=== PATIENT | female | born 1965 | race Caucasian/White ===

== ENCOUNTER 2023-09-11 08:01 | Emergency (ER) | payer BC, SELFPAY ==
[2023-09-11 08:13] VITALS: BP 170/91; PULSE 87; TEMP 36.6; O2SAT 98; BMI 40.7
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
[2023-09-11] MEDS: ADACEL DIPH,PERTUSS(ACELL),TET VAC/PF 0.5 ML ADULT SYRINGE IM (09:01)
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
== END 2023-09-11 09:16 | disposition home or self-care (01) ==
PROVIDERS: Emergency Provider Emergency Medicine; PCP Nurse Practitioner
DX: S51.012A Laceration without foreign body of left elbow, initial encounter (principal); Z23 Encounter for immunization; W22.8XXA Striking against or struck by other objects, initial encounter; Z79.899 Other long term (current) drug therapy
CPT/HCPCS: 73080; 90471; 90715; 99283

== ENCOUNTER 2023-10-19 22:12 | Emergency (ER) | payer BC, SELFPAY ==
[2023-10-19 22:29] VITALS: BP 150/90; PULSE 75; TEMP 36.7; O2SAT 92; BMI 27.3
--- NOTE | 2023-10-19 22:53 | ED_ITS ---
HPI - Nausea/Vomiting/Diarrhea General Chief complaint: Nausea/Vomiting/Diarrhea Stated complaint: VOMITING BP HIGH Time Seen by Provider: 10/19/23 22:46 Source: patient Mode of arrival: walk-in Limitations: no limitations History of Present Illness HPI Narrative: patient states her BP was elevated and her physician started her on a new BP medication. States tonight she did not feel right and took her BP and it was elevated at 160 systolic. She retook it and it was higher at 180s. She also became nauseated and vomited. States she no longer feels nauseated but has a headache. No chest pain or abdominal pain. States she does get headaches when her BP is not right Related Data Home Medications ?Medication ?Instructions ?Recorded ?Confirmed sertraline 100 mg tablet (Zoloft) 100 mg PO DAILY 09/11/23 10/19/23 amlodipine 5 mg tablet 5 mg PO DAILY 10/19/23 10/19/23 buspirone 7.5 mg tablet 7.5 mg PO DAILY 10/19/23 10/19/23 montelukast 10 mg tablet mg 10/19/23 Previous Rx's ?Medication ?Instructions ?Recorded cephalexin 500 mg capsule 500 mg PO TID 7 days #21 caps 09/11/23 Allergies Allergy/AdvReac Type Severity Reaction Status Date / Time No Known Drug Allergies Allergy Verified 10/19/23 22:36 Review of Systems ROS Status of ROS 10 or more systems reviewed and unremark able except as noted in history and below Exam Constitutional Vital Signs, click to edit/add: Last Vital Signs Temp 98.1 F 10/19/23 22:29 Pulse 75 10/19/23 22:29 Resp 18 10/19/23 22:29 BP 150/90 H 10/19/23 22:29 Pulse Ox 92 L 10/19/23 22:29 O2 Del Method Room Air 10/19/23 22:29 Common normals: no apparent distress, oriented x3, no limitations, healthy appearing, alert and well nourished [facility] Common normals: normocephalic and head/scalp atraumatic Eye Common normals: EOMs intact bilaterally and conjunctivae normal Respiratory Common normals: normal respiratory effort, no retractions, no use of accessory muscles and clear to auscultation bilaterally Cardio Common normals: regular rate, regular rhythm, S1 normal heart sound and S2 normal heart sound GI Common normals: Normal to inspection, nondistended, normoactive bowel sounds present, soft to palpation and non-tender Extremity Common normals: normal to inspection and full ROM Neuro Common normals: oriented x3, CN's II-XII intact bilaterally, moves all extremities and no focal motor deficits Psych Appearance: grossly normal Course Vital Signs Vital signs: Vital Signs Temperature 98.1 F 10/19/23 22:29 Pulse Rate 75 10/19/23 22:29 Respiratory Rate 18 10/19/23 22:29 Blood Pressure 150/90 H 10/19/23 22:29 Pulse Oximetry 92 L 10/19/23 22:29 Oxygen Delivery Method Room Air 10/19/23 22:29 Temperature 98.1 F 10/19/23 22:29 Pulse Rate 75 10/19/23 22:29 Respiratory Rate 18 10/19/23 22:29 Blood Pressure 150/90 H 10/19/23 22:29 Pulse Oximetry 92 L 10/19/23 22:29 Oxygen Delivery Method Room Air 10/19/23 22:29 MDM - Nausea/Vomiting/Diarrhea MDM Narrative Medical decision making narrative: patient presented with a headache and concern about her BP that was elevated at home. BP here 150s. Labs unremarkable. treated for headache with Reglan and benadryl and now is asymptomatic. Discharged home and advised to contact her doctor tomorrow to let her know how she is doing and schedule a followup Lab Data Labs: Lab Results 10/19/23 Range/Units 23:07 WBC 6.6 (4.0-11.0) 10^3/uL RBC 4.31 (4.20-5.40) 10^6/uL Hgb 12.6 (12.0-16.0) g/dL Hct 38.6 (36.0-48.0) % MCV 89.6 (81.0-99.0) fL MCH 29.2 (26.7-34.0) pg MCHC 32.6 (29.9-35.2) g/dL RDW 13.1 (11.0-15.0) % Plt Count 218 (150-450) 10^3/uL MPV 10.8 (9.5-13.5) fL Neut % (Auto) 59.1 (43.0-75.0) % Lymph % (Auto) 28.2 (20.5-60.0) % Calvert % (Auto) 6.7 (1.7-12.0) % Eos % (Auto) 4.4 (0.9-7.0) % Baso % (Auto) 1.4 (0.2-2.0) % Neut # (Auto) 3.9 (1.4-6.5) 10^3/uL Lymph # (Auto) 1.9 (1.2-3.8) 10^3/uL Calvert # (Auto) 0.4 (0.3-0.8) 10^3/uL Eos # (Auto) 0.3 (0.0-0.7) 10^3/uL Baso # (Auto) 0.1 (0.0-0.1) 10^3/uL Abs Immat Gran (auto) 0.01 (0.00-0.03) 10^3/uL Imm/Tot Granulo (auto) 0.2 (0.0-0.5) % Sodium 140 (136-145) mmol/L Potassium 3.8 (3.5-5.1) mmol/L Chloride 105 (98-107) mmol/L Carbon Dioxide 29.3 (21.0-32.0) mmol/L Anion Gap 9.5 BUN 18.0 (7.0-18.0) mg/dL Creatinine 1.01 (0.55-1.02) mg/dL Est GFR ( Amer) >60 (>=60) Est GFR (Non-Af Amer) 57 L (>=60) BUN/Creatinine Ratio 17.8 Glucose 121 H (74-106) mg/dL Calcium 9.4 (8.5-10.1) mg/dL Troponin I High Sens 4.7 (4.0-51.3) pg/mL Discharge Plan Discharge Stand Alone Forms: Portal Instructions Chief Complaint: Nausea/Vomiting/Diarrhea Clinical Impression: Headache, Hypertension Patient Disposition: Home, Self-Care Prescriptions / Home Meds: No Action amlodipine 5 mg tablet 5 mg PO DAILY buspirone 7.5 mg tablet 7.5 mg PO DAILY montelukast 10 mg tablet sertraline [Zoloft] 100 mg tablet 100 mg PO DAILY cephalexin 500 mg capsule 500 mg PO TID 7 Days Qty: 21 0RF Print Language: Yoruba Instructions: Acute Headache (ED), Hypertension (ED) Additional Instructions: follow up with your doctor tomorrow Referrals: JOYCE WILKINS [Primary Care Provider] - 1 week
--- NOTE | 2023-10-19 22:56 | ECG_ITS ---
The [facility] Test Date: 2023-10-19 Pat Name: MELYSSA SULTANA Department: Room: - Gender: Female Oil Operator: : 1965 Requested By: JOHAN JANG Order Number: [id number] Reading MD: JOHAN JANG Measurements Intervals [place] Rate: 68 P: 30 MO: 162 QRS: 79 QRSD: 74 T: 61 QT: 414 QTc: 431 Interpretive Statements 1100 Sinus rhythm 9110 normal ECG No previous ECG available for comparison Electronically Signed On 10-20-2023 5:30:25 EDT by JOHAN JANG
[2023-10-19 23:14] LABS: Basophils Absolute Auto 0.1 10^3/uL (0.0-0.1); Basophils Percent Auto 1.4 % (0.2-2.0); Eosinophils Absolute Auto 0.3 10^3/uL (0.0-0.7); Eosinophils Percent Auto 4.4 % (0.9-7.0); Hematocrit 38.6 % (36.0-48.0); Hemoglobin 12.6 g/dL (12.0-16.0); Immature Granulocytes Abs Auto 0.01 10^3/uL (0.00-0.03); Immature Granulocytes Pct Auto 0.2 % (0.0-0.5); Lymphocytes Absolute Auto 1.9 10^3/uL (1.2-3.8); Lymphocytes Percent Auto 28.2 % (20.5-60.0); Mean Corpuscular HGB Conc 32.6 g/dL (29.9-35.2); Mean Corpuscular Hemoglobin 29.2 pg (26.7-34.0); Mean Corpuscular Volume 89.6 fL (81.0-99.0); Mean Platelet Volume 10.8 fL (9.5-13.5); Monocytes Absolute Auto 0.4 10^3/uL (0.3-0.8); Monocytes Percent Auto 6.7 % (1.7-12.0); Neutrophils Absolute Auto 3.9 10^3/uL (1.4-6.5); Neutrophils Percent Auto 59.1 % (43.0-75.0); Platelet Count 218 10^3/uL (150-450); Red Blood Count 4.31 10^6/uL (4.20-5.40); Red Cell Distribution Width 13.1 % (11.0-15.0); White Blood Count 6.6 10^3/uL (4.0-11.0)
[2023-10-19 23:32] LABS: Anion Gap 9.5; BUN Creatinine Ratio 17.8; Calcium 9.4 mg/dL (8.5-10.1); Carbon Dioxide 29.3 mmol/L (21.0-32.0); Chloride 105 mmol/L (98-107); Estimated GFR (African America >60 (>=60); Estimated GFR (Non-African Ame 57 (>=60); Glucose 121 mg/dL (74-106); Potassium 3.8 mmol/L (3.5-5.1); Sodium 140 mmol/L (136-145); Troponin I High Sensitivity 4.7 pg/mL (4.0-51.3)
[2023-10-19] MEDS: METOCLOPRAMIDE HCL 10 MG/2 ML VIAL IVP (23:44)
[2023-10-19] MEDS: DIPHENHYDRAMINE HCL 50 MG/ML (1ML) VIAL IV (23:44)
[2023-10-20 00:49] VITALS: BP 154/90; PULSE 75; O2SAT 93
== END 2023-10-20 00:53 | disposition home or self-care (01) ==
PROVIDERS: Emergency Provider Internal Medicine; PCP Nurse Practitioner
DX: R51.9 Headache, unspecified (principal); I10 Essential (primary) hypertension; Z79.899 Other long term (current) drug therapy
CPT/HCPCS: 36415; 80048; 84484; 85025; 93005; 96374; 96375; 99284

== ENCOUNTER 2023-12-08 20:47 | Outpatient (OUT) | payer BC, SELFPAY | END 2023-12-08 20:48 | disposition home or self-care (01) | LOC: SLEEP 20:47 | PROVIDERS: PCP Nurse Practitioner; Visit Provider Nurse Practitioner | DX: G47.33 Obstructive sleep apnea (adult) (pediatric) (principal) | CPT/HCPCS: 95810 ==

== ENCOUNTER 2024-01-20 20:37 | Outpatient (OUT) | payer BC, SELFPAY ==
--- OUTSIDE RECORDS SUMMARY | 2024-01-20 20:39 | XMS_ITS | CCD ---
Author Organization [facility] Inform ion Partnership [facility] Care Team Providers Care Cheese Cutter Name Role Phone Cyn Falk Primary Care Provider Tereza Lombardo Unavailable Lexus Rhodes Primary Care Physician [phone] Lexus Rhodes Attending Unavailable Carmelo, Lexus Suarez Admitting Unavailable Carmelo, Lexus Suarez Attending Unavailable Carmelo, Lexus Suarez Attending Unavailable Carmelo, Lexus Suarez Attending Unavailable Carmelo, Lexus Suarez Attending Unavailable Carmelo, Lexus Suarez Attending Unavailable Carmelo, Lexus Suarez Admitting Unavailable Carmelo, Lexus Suarez Attending Unavailable Allergies Allergy Classification Reported Allergen(s) Allergy Type Date of Onset Reaction(s) Facility (2 sources) No Known Medication Allergies; Translations: [No Known Medication Allergies] Propensity to adverse reactions (disorder) [facility] Repository Medications Current Medications Medication Drug Class(es) Dates Sig (Normalized) Sig (Original) amLODIPine 5 mg oral tablet (1 source) Dihydropyridine Calcium Channel Jessy Start: 10-19-19 take 1 tablet by mouth once daily Norvasc 5 mg Tab 5 mg = 1 tab(s), Oral, Daily, # 30 tab(s), Refills(s) 0, Pharmacy: [facility]/pharmacy #[id number], 170.1, cm, 10/19/23 9:20:00 EDT, Height/Length Dosing, 127, kg, 10/19/23 9:20:00 EDT, Weight Dosing Start Date: 10/19/23 Status: Ordered busPIRone hydrochloride 7.5 mg oral tablet (1 source) Start: 10-19-19 take 1 tablet by mouth three times daily busPIRone 7.5 mg oral tablet 7.5 mg = 1 tab(s), Oral, TID, # 90 tab(s), Refills(s) 0, Pharmacy: [facility]/pharmacy #[id number], 170.1, cm, 10/19/23 9:20:00 EDT, Height/Length Dosing, 127, kg, 10/19/23 9:20:00 EDT, Weight Dosing Start Date: 10/19/23 Status: Ordered cetirizine hydrochloride 10 mg oral capsule (1 source) Histamine-1 Receptor Antagonist Start: 10-19-19 take 1 capsule by mouth once daily as needed cetirizine 10 mg oral capsule 10 mg = 1 cap(s), Oral, Daily, PRN for allergy symptoms, # 90 cap(s), Refills(s) 0, Pharmacy: [facility]/pharmacy #[id number], 170.1, cm, 10/19/23 9:20:00 EDT, Height/Length Dosing, 127, kg, 10/19/23 9:20:00 EDT, Weight Dosing Start Date: 10/19/23 Status: Ordered fluticasone propionate 0.05 mg/actuat metered dose nasal spray (1 source) Corticosteroid Start: 08-12-19 take 1 spray(s) nasal route once daily Fluticasone Propionate 50 MCG/ACT 1 spray in each nostril Nasally Once a day for 21 days Jul, Active methylPREDNISolone 4 mg oral tablet (1 source) Corticosteroid Start: 08-12-19 methylPREDNISolone 4 MG as directed Orally Once a day for 6 days Jul, Active montelukast 10 mg oral tablet (1 source) Leukotriene Receptor Antagonist Start: 10-19-19 take 1 tablet by mouth once daily in the evening Singulair 10 mg Tab 10 mg = 1 tab(s), Oral, qPM, # 90 tab(s), Refills(s) 0, Pharmacy: [facility]/pharmacy #[id number], 170.1, cm, 10/19/23 9:20:00 EDT, Height/Length Dosing, 127, kg, 10/19/23 9:20:00 EDT, Weight Dosing Start Date: 10/19/23 Status: Ordered omeprazole 20 mg delayed release oral capsule (1 source) Proton Pump Inhibitor Start: 10-19-19 End: 10-14-19 take 1 capsule by mouth once daily omeprazole 20 mg Cap-DR 20 mg = 1 cap(s), Oral, Daily, X 90 day(s), # 90 cap(s), Refills(s) 3, Pharmacy: [facility]/pharmacy #[id number], 170.1, cm, 10/19/23 9:20:00 EDT, Height/Length Dosing, 127, kg, 10/19/23 9:20:00 EDT, Weight Dosing Start Date: 10/19/23 Stop Date: 10/13/24 Status: Ordered sertraline 100 mg oral tablet (1 source) Serotonin Reuptake Inhibitor Start: 10-19-19 End: 10-14-19 take 1 tablet by mouth once daily sertraline 100 mg Tab 100 mg = 1 tab(s), Oral, Daily, X 90 day(s), # 90 tab(s), Refills(s) 3, Pharmacy: [facility]/pharmacy #[id number], 170.1, cm, 10/19/23 9:20:00 EDT, Height/Length Dosing, 127, kg, 10/19/23 9:20:00 EDT, Weight Dosing Start Date: 10/19/23 Stop Date: 10/13/24 Status: Ordered Xtra large cuff-automatic BP monitor (1 source) Start: 10-19-19 Xtra large cuff-automatic BP monitor Xtra large cuff-automatic BP monitor, See Instructions, 1 EA, 0, check BP once a day, [facility]/pharmacy #[id number], Supply, 170.1, cm, 10/19/23 9:20:00 EDT, Height/Length Dosing, 127, kg, 10/19/23 9:20:00 EDT, Weight Dosing Start Date: 10/19/23 Status: Ordered Problems Problem Classification Problem Date Documented Da te Episodic/Chronic Chronic obstructive pulmonary disease and bronchiectasis (1 source) Bronchitis, not specified as acute or chronic Episodic Coma; stupor; and brain damage (1 source) Daytime somnolence 10-19-2023 Episodic Essential hypertension (1 source) Hypertensive disorder 10-19-2023 Chronic Immunizations and screening for infectious disease (1 source) Exposure to communicable disease; Translations: [Virus (organism)] Onset: 04-12-2020 Episodic Malaise and fatigue (1 source) Fatigue 10-19-2023 Episodic Other connective tissue disease (1 source) Cramp in lower limb 10-19-2023 Episodic Other lower respiratory disease (1 source) Snoring 10-19-2023 Episodic Other upper respiratory infections (1 source) Sinusitis 05-07-2023 Chronic Other upper respiratory infections (1 source) Acute upper respiratory infection, unspecified Episodic Otitis media and related conditions (2 sources) Finding of fluid behind tympanic membrane; Translations: [Otitis media] 05-07-2023 Episodic Unclassified (3 sources) Patient encounter status 10-19-2023 Results Test Name Value Interpretation Reference Range Facility Family Medicine Office/Clini c Noteon 11-11-2023 Family Medicine Office/Clinic Note HPI Staff Leia is a 58 year old female presenting for 3 weeks follow up ANDRÉS: 10/19/23 started norvasc 5mg Patient is here for follow up on hypertension. How often are you checking your blood pressure? 111/66 What are your average readings? every 3 days no side effects from starting norvasc Pt states sometimes when she swallows and sometimes feels like things get stuck, when eating always has to carry a drink with her and worse with dry foods. Has been intermittent for 2 years pt thought it was just due to her GERD but her brother and dad both had to have there there esophagus stretched. Pt had a swallow study done but has been over 15 years ago History of Present Illness pt presents today. Review of Systems PHQ Score Initial Depression Screen Score: 0 SCORE Physical Exam Vitals & Measurements HR: 80(Peripheral) RR: 18 BP: 120/84 SpO2: 96% HT: 67 in HT: 170.1 cm WT: 128.60 kg WT: 282.92 lb BMI: 44.45 General: alert, no acute distress ENMT: oral mucosa moist, no pharyngeal erythema or exudate Cardiovascular: regular rate and rhythm, normal peripheral perfusion Respiratory: Lungs CTA, respirations non labored Extremities: no deformity, no trauma Neurological: oriented x 4, LOC appropriate for age, CN II-XII intact, motor strength equal & normal bilaterally, speech normal Assessment/Plan 1. Hypertension (I10: Essential (primary) hypertension) BP at goal today. pt is feel much better. will send refills. RTC 3 months Ordered: E&M of Est. Patient Low 20-29 Min 40564 2. Difficulty swallowing solids (R13.10: Dysphagia, unspecified) pt having trouble swallowing food at time. always has to have a drink when eating because things get stuck. family history of needed esophagus stretched dad and brother. will order swallow evaluation to [facility]. may refer to ENT pending results of swallow study Ordered: E&M of Est. Patient Low 20-29 Min 12472 3. BMI 40.0-44.9, adult (Z68.41: Body mass index [BMI] 40.0-44.9, adult) BMI education complete Ordered: E&M of Est. Patient Low 20-29 Min 30659 Follow-up No qualifying data available Problem List/Past Medical History Ongoing Bilateral otitis media Daytime somnolence Difficulty swallowing solids Fatigue Fluid level behind tympanic membrane of both ears Hypertension Leg cramps Loud snoring Screening for hyperlipidemia Screening for thyroid disorder Sinusitis Wellness examination Historical No qualifying data Procedure/Surgical History Ablation. Medications busPIRone 7.5 mg oral tablet, 7.5 mg= 1 tab(s), Oral, TID cetirizine 10 mg oral capsule, 10 mg= 1 cap(s), Oral, Daily, PRN Norvasc 5 mg Tab, 5 mg= 1 tab(s), Oral, Daily, 3 refills omeprazole 20 mg Cap-DR, 20 mg= 1 cap(s), Oral, Daily, 3 refills sertraline 100 mg Tab, 100 mg= 1 tab(s), Oral, Daily, 3 refills Singulair 10 mg Tab, 10 mg= 1 tab(s), Oral, qPM Xtra large cuff-automatic BP monitor, See Instructions Allergies No Known Medication Allergies Social History Tobacco Never (less than 100 in lifetime) Tobacco Use:. Never, Current vaping or e-cigarette use Smokeless Tobacco Use:. Vaping, Ready to change: No. Household tobacco concerns: No., 11/10/2023 Family History Heart disease: Mother and Father. Hypertension: Mother and Father. Metastatic cancer: Father and Grandparent. Primary malignant neoplasm of lung: Father and Grandparent. Immunizations Vaccine Date Status Comments SARS-CoV-2 mRNA (toradhikanameran 5y-11y) vac - Not Given Postpone due to refusal [facility] Comment on above: Result Comment: Elec tronically Signed By: Lexus Estes\.br\Date and Time Signed: 11/11/23 15:05 EDT Ambulatory Visit Summaryon 0 11-10-2023 Ambulatory Visit Summary LEIA SULTANA :1965 Visit Date:11/10/2023 Ambulatory Visit Instructions Your Diagnosis Hypertension Difficulty swallowing solids BMI 40.0-44.9, adult Anxiety Current every day vaping Depression Fatigue Leg cramps Screening for hyperlipidemia Screening for thyroid disorder Wellness examination Your Care Team Attending Physician - Lexus Estes Primary Care Physician - Lexus Estes This Is Your Medications List Misc Prescription (Xtra large cuff-automatic BP monitor) amlodipine (Norvasc 5 mg Tab) busPIRone (busPIRone 7.5 mg oral tablet) cetirizine (cetirizine 10 mg oral capsule) montelukast (Singulair 10 mg Tab) omeprazole (omeprazole 20 mg Cap-DR) sertraline (sertraline 100 mg Tab) Procedures Performed Ablation. Discharge Vitals Heart Rate (Peripheral) 80 Respiratory Rate 18 Blood Pressure 120/84 Height 170.1 cm Height 67 in Weight 128.60 kg Weight 282.92 lb BMI 44.45 What to do next Scheduled Follow-Up Appointments Thursday 1:40 PM EDT With: Lexus Estes Where: [facility] Family Medicine [facility] Physician Orderon 11-10-2023 Physician Order [id number] 8#1.00TIFF [facility] Auth for Release of Medical Recordson 10-21-2023 Auth for Release of Medical Records [id number] 1#1.00TIFF [facility] ED Note-Physicianon 10-20-19 ED Note-Physician [id number] DE#1.00TIFF [facility] Ambulatory Visit Summaryon 0 10-19-2023 Ambulatory Visit Summary LEIA SULTANA :1965 Visit Date:10/19/2023 Ambulatory Visit Instructions Your Diagnosis Wellness examination Screening for hyperlipidemia Screening for thyroid disorder Fatigue Leg cramps Hypertension Anxiety Depression BMI 40.0-44.9, adult Current every day vaping Your Care Team Attending Physician - Lexus Estes Primary Care Physician - Lexus Estes This Is Your Medications List amlodipine (Norvasc 5 mg Tab) cetirizine (cetirizine 10 mg oral capsule) montelukast (Singulair 10 mg Tab) omeprazole (omeprazole 20 mg Cap-DR) sertraline (sertraline 100 mg Tab) Procedures Performed Ablation. Discharge Vitals Heart Rate (Peripheral) 78 Respiratory Rate 18 Blood Pressure 158/104 Height 170.1 cm Height 67 in Weight 127.0 kg Weight 279.4 lb BMI 43.89 What to do next Scheduled Follow-Up Appointments Thursday 10:00 AM EDT With: Lexus Estes Where: [facility] Family Medicine Shanelle Normal [facility] CBC w/ Auto Diffon 4 Basophils/100 WBC (Bld) 1.2 % Normal 0.0-2.0 [facility] Comment on above: Performed By: #### 2 [id number] #### [facility] [address] [place] [address] Basophils/Leukocytes Auto (Bld) [Pure # fraction] 0.1 E9/L Normal 0.0-0.2 [facility] Comment on above: Performed By: #### 2 [id number] #### [facility] [address] [place] [address] Eosinophils (Bld) [#/Vol] 0.3 E9/L Normal 0.0-0.5 [facility] Comment on above: Performed By: #### 2 [id number] #### [facility] [address] [place] [address] Eosinophils/100 WBC (Bld) 5.1 % Normal 0.0-8.0 [facility] Comment on above: Performed By: #### 2 [id number] #### [facility] [address] [place] [address] Erythrocyte distribution width (RBC) [Ratio] 13.4 % Normal 10.9-14.2 [facility] Comment on above: Performed By: #### 2 [id number] #### [facility] [address] [place] [address] Hematocrit (Bld) [Volume fraction] 40.1 % Normal 34.0-46.0 [facility] Comment on above: Performed By: #### 2 [id number] #### [facility] [address] [place] [address] Hemoglobin (Bld) [Mass/Vol] 13.3 g/dL Normal 12.0-16.0 [facility] Comment on above: Performed By: #### 2 [id number] #### [facility] [address] [place] [address] Lymphocytes (Bld) [#/Vol] 1.6 E9/L Normal 1.0-4.0 [facility] Comment on above: Performed By: #### 2 [id number] #### [facility] [address] [place] [address] Lymphocytes/100 WBC (Bld) 27.8 % Normal 14.0-50.0 [facility] Comment on above: Performed By: #### 2 [id number] #### [facility] [address] [place] [address] MCH (RBC) [Entitic mass] 29.2 pg Normal 27.0-34.0 [facility] Comment on above: Performed By: #### 2 [id number] #### [facility] [address] [place] [address] MCHC (RBC) [Mass/Vol] 33.2 g/dL Normal 31.4-36.0 [facility] Comment on above: Performed By: #### 2 [id number] #### [facility] [address] [place] [address] MCV (RBC) [Entitic vol] 88.1 fL Normal 80.0-100.0 [facility] Comment on above: Performed By: #### 2 [id number] #### [facility] [address] [place] [address] Monocytes (Bld) [#/Vol] 0.5 E9/L Normal 0.2-1.0 [facility] Comment on above: Performed By: #### 2 [id number] #### [facility] [address] [place] [address] Neutrophils (Bld) [#/Vol] 3.3 E9/L Normal 2.0-7.5 [facility] Comment on above: Performed By: #### 2 [id number] #### [facility] [address] [place] [address] Neutrophils/100 WBC (Bld) 57.2 % Normal 36.0-75.0 [facility] Comment on above: Performed By: #### 2 [id number] #### [facility] [address] [place] [address] Platelet 237.0 E9/L Normal 150.0-500.0 [facility] Comment on above: Performed By: #### 2 [id number] #### [facility] [address] [place] [address] Platelet mean volume (Bld) [Entitic vol] 9.5 fL Normal 6.4-10.8 [facility] Comment on above: Performed By: #### 2 [id number] #### [facility] [address] [place] [address] RBC (Bld) [#/Vol] 4.6 E12/L Normal 4.3-5.9 [facility] Comment on above: Performed By: #### 2 [id number] #### [facility] [address] [place] [address] WBC corrected for nucl RBC Auto (Bld) [#/Vol] 5.8 E9/L Normal 4.0-11.0 [facility] Comment on above: Performed By: #### 2 [id number] #### [facility] [address] [place] [address] CHEMISTRYOrdered By: SYSTEM SYSTEM on 10-19-2023 Albumin [Mass/Vol] 4.1 g/dL Normal 3.3 - 5.0 gm/dL [facility] Albumin/Globulin [Mass ratio] 1.5 {ratio} Normal 1.1 - 2.2 [facility] ALP [Catalytic activity/Vol] 65 [iU]/d Normal 21 - 98 Int._Unit/L [facility] ALT No additional P-5'-P [Catalytic activity/Vol] 16 [iU]/d Normal 6 - 46 Int._Unit/L [facility] Anion gap [Moles/Vol] 10 mmol/L Normal 6 - 16 mEq/L R emisol Chem AST [Catalytic activity/Vol] 20 [iU]/d Normal 5 - 43 Int._Unit/L [facility] Bilirubin [Mass/Vol] 0.4 mg/dL Normal 0.0 - 1 .1 mg/dL [facility] Calcium [Mass/Vol] 8.8 mg/dL Low 8.9 - 11. 1 mg/dL [facility] Chloride [Moles/Vol] 105 mmol/L Normal 101 - 1 11 mmol/L [facility] Cholesterol [Mass/Vol] 205 mg/dL High 120 - 200 mg/dL [facility] Cholesterol in HDL [Mass/Vol] 49 mg/dL Invalid Interpretation Code [facility] Comment on above: Result Comment: '>= 60 LOW RISK' '<= 40 HIGH RISK' Cholesterol in LDL [Mass/Vol] 140 mg/dL High <=129mg/dL [facility] Cholesterol in VLDL [Mass/Vol] 27 mg/dL Normal 7 - 40 mg/dL [facility] CO2 [Moles/Vol] 29 mmol/L Normal 21 - 31 mmol/L [facility] Creatinine [Mass/Vol] 0.9 mg/dL Normal 0.5 - 1.3 mg/dL [facility] eGFR 75 mL/min/1.73 m2 Normal >=59mL/min /1. 73 m2 [facility] Globulin (S) [Mass/Vol] 2.7 g/dL Normal 1.4 - 4.0 gm/dL [facility] Glucose [Mass/Vol] 94 mg/dL Normal 55 - 199 mg/dL [facility] Potassium [Moles/Vol] 4.4 mmol/L Normal 3.5 - 5.3 mmol/L [facility] Protein [Mass/Vol] 6.8 g/dL Normal 6.0 - 7.8 gm/dL [facility] Sodium [Moles/Vol] 140 mmol/L Normal 135 - 145 mmol/L [facility] Triglyceride [Mass/Vol] 136 mg/dL Normal <=149mg/dL [facility] TSH Qn 2.49 m[IU]/L Normal 0.34 - 5.60 mcIU/mL [facility] Urea nitrogen [Mass/Vol] 16 mg/dL Normal 5 - 21 mg/dL [facility] Urea nitrogen/Creatinine [Mass ratio] 18 mg/mg Normal 10 - [facility] CMPon 10-19-2023 Albumin [Mass/Vol] 4.1 g/dL Normal 3.3-5.0 [facility] Comment on above: Performed By: #### 2 [id number] #### [facility] [address] [place] [address] Albumin/Globulin (S) [Mass conc ratio] 1.5 Normal 1.1-2.2 [facility] Comment on above: Performed By: #### 2 [id number] #### [facility] [address] [place] [address] ALP [Catalytic activity/Vol] 65 Int._Unit/L Normal 21-98 [facility] Comment on above: Performed By: #### 2 [id number] #### [facility] [address] [place] [address] ALT No additional P-5'-P [Catalytic activity/Vol] 16 Int._Unit/L Normal 6-46 [facility] Comment on above: Performed By: #### 2 [id number] #### [facility] [address] [place] [address] Anion gap [Moles/Vol] 10 mmol/L Normal 6-16 [facility] Comment on above: Performed By: #### 2 [id number] #### [facility] [address] [place] [address] AST [Catalytic activity/Vol] 20 Int._Unit/L Normal 5-43 [facility] Comment on above: Performed By: #### 2 [id number] #### [facility] [address] [place] [address] Bilirubin [Mass/Vol] 0.4 mg/dL Normal 0.0-1.1 [facility] Comment on above: Performed By: #### 2 [id number] #### [facility] [address] [place] [address] Calcium [Mass/Vol] 8.8 mg/dL Low 8.9-11.1 [facility] Comment on above: Performed By: #### 2 [id number] #### [facility] [address] [place] [address] Chloride [Moles/Vol] 105 mmol/L Normal 101-111 [facility] Comment on above: Performed By: #### 2 [id number] #### [facility] [address] [place] [address] CO2 [Moles/Vol] 29 mmol/L Normal 21-31 [facility] Comment on above: Performed By: #### 2 [id number] #### [facility] [address] [place] [address] Creatinine [Mass/Vol] 0.9 mg/dL Normal 0.5-1.3 [facility] Comment on above: Performed By: #### 2 [id number] #### [facility] [address] [place] [address] Globulin (S) [Mass/Vol] 2.7 g/dL Normal 1.4-4.0 [facility] Comment on above: Performed By: #### 2 [id number] #### [facility] [address] [place] [address] Glucose [Mass/Vol] 94 mg/dL Normal 55-199 [facility] Comment on above: Performed By: #### 2 [id number] #### [facility] [address] [place] [address] Potassium [Moles/Vol] 4.4 mmol/L Normal 3.5-5.3 [facility] Comment on above: Performed By: #### 2 [id number] #### [facility] [address] [place] [address] Protein [Mass/Vol] 6.8 g/dL Normal 6.0-7.8 [facility] Comment on above: Performed By: #### 2 [id number] #### [facility] [address] [place] [address] Sodium [Moles/Vol] 140 mmol/L Normal 135-145 [facility] Comment on above: Performed By: #### 2 [id number] #### [facility] [address] [place] [address] Urea nitrogen [Mass/Vol] 16 mg/dL Normal 5-21 [facility] Comment on above: Performed By: #### 2 [id number] #### [facility] [address] [place] [address] Urea nitrogen/Creatinine [Mass ratio] 18 No Units Normal 10-20 [facility] Comment on above: Performed By: #### 2 [id number] #### [facility] [address] [place] [address] Family Medicine Office/Clini c Noteon 10-19-2023 Family Medicine Office/Clinic Note HPI Staff Leia is a 58 year old female presenting for Medication refill Follow up for Mental Status: Medication adherence- Yes, takes medication as prescribed Medication refill needed: _ Suicidal thoughts-Not at this time Most recent SANTO: 10 Most recent PHQ: 12 Labs due pt is fasting Pt states her blood pressure has been running high and home and when she goes other places. 130/90 was last week in an office. pt has been feeling fatigued not sleeping well at night getting up 2-3 times to use the restroom. Pt does snore, no apnea that she know's of, sometimes will waking up choking/coughing. Intermittent feeling she feels hot and she could pass out and headache Onset: 2-3 months getting leg cramps, has been taking magnesium seems to be helping Would like to discuss Anx/Dep as it is out of control. History of Present Illness pt presents for wellness. due for labs. has a couple complaints and elevated BP Review of Systems PHQ Score Initial Depression Screen Score: 2 SCORE Physical Exam Vitals & Measurements HR: 78(Peripheral) RR: 18 BP: 158/104 SpO2: 99% HT: 67 in HT: 170.1 cm WT: 127.0 kg WT: 279.4 lb BMI: 43.89 General: alert, no acute distress ENMT: oral mucosa moist, no pharyngeal erythema or exudate Cardiovascular: regular rate and rhythm, normal peripheral perfusion Respiratory: Lungs CTA, respirations non labored Extremities: no deformity, no trauma Neurological: oriented x 4, LOC appropriate for age, CN II-XII intact, motor strength equal & normal bilaterally, speech normal Assessment/Plan 1. Wellness examination (Z00.00: Encounter for general adult medical examination without abnormal findings) pt presents for annual wellness with lab work Ordered: amlodipine, 5 mg = 1 tab(s), Oral, Daily, # 30 tab(s), Refills(s) 0, Pharmacy: [facility] #[id number], 170.1, cm, 10/19/23 9:20:00 EDT, Height/Length Dosing, 127, kg, 10/19/23 9:20:00 EDT, Weight Dosing busPIRone, 7.5 mg = 1 tab(s), Oral, TID, # 90 tab(s), Refills(s) 0, Pharmacy: [facility] #[id number], 170.1, cm, 10/19/23 9:20:00 EDT, Height/Length Dosing, 127, kg, 10/19/23 9:20:00 EDT, Weight Dosing cetirizine, 10 mg = 1 cap(s), Oral, Daily, PRN for allergy symptoms, # 90 cap(s), Refills(s) 0, Pharmacy: [facility] #[id number], 170.1, cm, 10/19/23 9:20:00 EDT, Height/Length Dosing, 127, kg, 10/19/23 9:20:00 EDT, Weight Dosing [facility] Prescription, Xtra large cuff-automatic BP monitor, See Instructions, 1 EA, 0, check BP once a day, [facility] #[id number], Supply, 170.1, cm, 10/19/23 9:20:00 EDT, Height/Length Dosing, 127, kg, 10/19/23 9:20:00 EDT, Weight Dosing montelukast, 10 mg = 1 tab(s), Oral, qPM, # 90 tab(s), Refills(s) 0, Pharmacy: [facility]/pharmacy #[id number], 170.1, cm, 10/19/23 9:20:00 EDT, Height/Length Dosing, 127, kg, 10/19/23 9:20:00 EDT, Weight Dosing CBC w/ Auto Diff Comprehensive Metabolic Panel Lab Specimen Collect 40099 Lipid Panel Thyroid Stimulating Hormone 2. Screening for hyperlipidemia (Z13.220: Encounter for screening for lipoid disorders) lipid panel drawn Ordered: amlodipine, 5 mg = 1 tab(s), Oral, Daily, # 30 tab(s), Refills(s) 0, Pharmacy: [facility]/pharmacy #[id number], 170.1, cm, 10/19/23 9:20:00 EDT, Height/Length Dosing, 127, kg, 10/19/23 9:20:00 EDT, Weight Dosing busPIRone, 7.5 mg = 1 tab(s), Oral, TID, # 90 tab(s), Refills(s) 0, Pharmacy: [facility]/pharmacy #[id number], 170.1, cm, 10/19/23 9:20:00 EDT, Height/Length Dosing, 127, kg, 10/19/23 9:20:00 EDT, Weight Dosing cetirizine, 10 mg = 1 cap(s), Oral, Daily, PRN for allergy symptoms, # 90 cap(s), Refills(s) 0, Pharmacy: [facility]/pharmacy #[id number], 170.1, cm, 10/19/23 9:20:00 EDT, Height/Length Dosing, 127, kg, 10/19/23 9:20:00 EDT, Weight Dosing [facility] [place] Prescription, Xtra large cuff-automatic BP monitor, See Instructions, 1 EA, 0, check BP once a day, [facility]/pharmacy #[id number], Supply, 170.1, cm, 10/19/23 9:20:00 EDT, Height/Length Dosing, 127, kg, 10/19/23 9:20:00 EDT, Weight Dosing montelukast, 10 mg = 1 tab(s), Oral, qPM, # 90 tab(s), Refills(s) 0, Pharmacy: [facility]/pharmacy #[id number], 170.1, cm, 10/19/23 9:20:00 EDT, Height/Length Dosing, 127, kg, 10/19/23 9:20:00 EDT, Weight Dosing CBC w/ Auto Diff Comprehensive Metabolic Panel Lab Specimen Collect 13113 Lipid Panel Thyroid Stimulating Hormone 3. Screening for thyroid disorder (Z13.29: Encounter for screening for other suspected endocrine disorder) TSH drawn Ordered: amlodipine, 5 mg = 1 tab(s), Oral, Daily, # 30 tab(s), Refills(s) 0, Pharmacy: [facility]/pharmacy #[id number], 170.1, cm, 10/19/23 9:20:00 EDT, Height/Length Dosing, 127, kg, 10/19/23 9:20:00 EDT, Weight Dosing busPIRone, 7.5 mg = 1 tab(s), Oral, TID, # 90 tab(s), Refills(s) 0, Pharmacy: [facility]/pharmacy #[id number], 170.1, cm, 10/19/23 9:20:00 EDT, Height/Length Dosing, 127, kg, 10/19/23 9:20:00 EDT, Weight Dosing cetirizine, 10 mg = 1 cap(s), Oral, Daily, PRN for allergy symptoms, # 90 cap(s), Refills(s) 0, Pharmacy: [facility]/pharmacy #[id number], 170.1, cm, 10/19/23 9:20:00 EDT, Height/Length Dosing, 127, kg, 10/19/23 9:20:00 EDT, (more content not included)... Normal [facility] Comment on above: Result Comment: Elec tronically Signed By: Lexus Estes\.br\Date and Time Signed: 10/19/23 10:00 EDT HEMATOLOGYOrdered By: SYSTEM SYSTEM on 10-19-2023 Basophils/100 WBC (Bld) 1.2 % Normal 0.0 - 2.0 % Remisol Heme Basophils/Leukocytes Auto (Bld) [Pure # fraction] 0.1 E9/L Normal 0.0 - 0.2 E9/L Remisol Heme Eosinophils (Bld) [#/Vol] 0.3 E9/L Normal 0.0 - 0.5 E9/L Remisol Heme Eosinophils/100 WBC (Bld) 5.1 % Normal 0.0 - 8.0 % Remisol Heme Erythrocyte distribution width (RBC) [Ratio] 13.4 % Normal 10.9 - 14.2 % Remisol Heme Hematocrit (Bld) [Volume fraction] 40.1 % Normal 34.0 - 46.0 % Remisol Heme Hemoglobin (Bld) [Mass/Vol] 13.3 g/dL Normal 12.0 - 16.0 gm/dL Remisol Heme Lymphocytes (Bld) [#/Vol] 1.6 E9/L Normal 1.0 - 4.0 E9/L Remisol Heme Lymphocytes/100 WBC (Bld) 27.8 % Normal 14.0 - 50.0 % Remisol Heme MCH (RBC) [Entitic mass] 29.2 pg Normal 27.0 - 34.0 pg Remisol Heme MCHC (RBC) [Mass/Vol] 33.2 g/dL Normal 31.4 - 36.0 gm/dL Remisol Heme MCV (RBC) [Entitic vol] 88.1 fL Normal 80.0 - 100.0 fL Remisol Heme Monocytes (Bld) [#/Vol] 0.5 E9/L Normal 0.2 - 1.0 E9/L Remisol Heme Monocytes/100 WBC (Bld) 8.7 % Normal 4.0 - 14.0 % Remisol Heme Neutrophils (Bld) [#/Vol] 3.3 E9/L Normal 2.0 - 7.5 E9/L Remisol Heme Neutrophils/100 WBC (Bld) 57.2 % Normal 36.0 - 75.0 % Remisol Heme Platelet 237.0 E9/L Normal 150.0 - 500.0 E9/L Remisol Heme Platelet mean volume (Bld) [Entitic vol] 9.5 fL Normal 6.4 - 10.8 fL Remisol Heme RBC (Bld) [#/Vol] 4.6 E12/L Normal 4.3 - 5.9 E12/L Remisol Heme WBC corrected for nucl RBC Auto (Bld) [#/Vol] 5.8 E9/L Normal 4.0 - 11.0 E9/L Remisol Heme Lipid Panelon 10-19-2023 Cholesterol [Mass/Vol] 205 mg/dL High 120-200 [facility] Comment on above: Performed By: #### [id number] #### [facility] [address] [place] [address] Cholesterol in HDL [Mass/Vol] 49 mg/dL Invalid Interpretation Code [facility] Comment on above: Result Comment: '>= 60 LOW RISK' '<= 40 HIGH RISK' Performed By: #### [id number] #### [facility] [address] [place] [address] Cholesterol in LDL [Mass/Vol] 140 mg/dL High <=129 [facility] Comment on above: Performed By: #### 2 [id number] #### [facility] [address] [place] [address] Cholesterol in VLDL [Mass/Vol] 27 mg/dL Normal 7-40 [facility] Comment on above: Performed By: #### 2 [id number] #### [facility] [address] [place] [address] Triglyceride [Mass/Vol] 136 mg/dL Normal <=149 [facility] Comment on above: Performed By: #### 2 [id number] #### [facility] [address] [place] [address] TSHon 10-19-2023 TSH Qn 2.49 m[IU]/L Normal 0.34-5.60 [facility] Comment on above: Performed By: #### 2 [id number] #### [facility] [address] [place] [address] eGFRon 10-19-2023 eGFR 75 mL/min/1.73 m2 Normal >=59 [facility] Comment on above: Order Comment: Order added by Discern Expert. Performed By: #### [id number] #### [facility] [address] [place] [address] ED Note-Physicianon 09-11-19 ED Note-Physician [id number] Normal [facility] Ambulatory Visit Summaryon 1 2-07-2023 Ambulatory Visit Summary SULTANA, LEIA L :1965 Visit Date:05/07/2023 Ambulatory Visit Instructions Your Diagnosis Bilateral otitis media Fluid level behind tympanic membrane of both ears Sinusitis BMI 40.0-44.9, adult Vaping nicotine dependence, tobacco product Your Care Team Attending Physician - Lexus Estes Primary Care Physician - Lexus Estes This Is Your Medications List amoxicillin-clavula daniel (Augmentin 875 mg oral tablet) fluticasone nasal (Flonase 0.05 mg/inh [place]) omeprazole (omeprazole 20 mg Cap-DR) sertraline (sertraline 100 mg Tab) Procedures Performed Ablation. Discharge Vitals Temperature (Tympanic) 36.2 ?C Heart Rate (Peripheral) 72 Respiratory Rate 16 Blood Pressure 146/94 Height 170.1 cm Height 67 in Weight 121.8 kg Weight 267.96 lb BMI 42.1 Medications What How Much When Why Instructions New amoxicillin-clavula daniel (Augmentin 875 mg oral tablet) 1 Tablets By Mouth Every 12 hours Bilateral otitis media Fluid level behind tympanic membrane of both ears Sinusitis BMI 40.0-44.9, adult Vaping nicotine dependence, tobacco product Duration: 7 Days Pickup at [facility]/pharmacy #6177 New fluticasone nasal (Flonase 0.05 mg/ inh [place]) 2 Sprays Nasal Inhalation Every day Bilateral otitis media Fluid level behind tympanic membrane of both ears Sinusitis BMI 40.0-44.9, adult Vaping nicotine dependence, tobacco product each nostril Pickup at [facility]/pharmacy #6177 New sertraline (sertraline 100 mg Tab) 1 Tablets By Mouth Every day Pickup at [facility]/pharmacy #6177 Unchanged omeprazole (omeprazole 20 mg Cap-DR) 1 Capsules By Mouth Every day Pharmacy Information [facility]/pharmacy #[id number]: [address], [place] [id number] [phone] Medications and Immunizations Administered Given triamcinolone acetonide 40 mg/mL Inj Susp, 40 mg, IntraMuscular. For: Bilateral otitis media, Fluid level behind tympanic membrane of both ears, Sinusitis Allergies No Known Medication Allergies Problems Ongoing - Any problem that you are currently receiving treatment for. Bilateral otitis media Fluid level behind tympanic membrane of both ears Sinusitis Patient Survey You may receive a survey via text or e-mail asking about your office visit. Please share your experience with us by completing your survey. We appreciate your feedback and thank you for choosing us for your care. Normal [facility] Consenton 05-07-2023 Consent [id number] Normal [facility] Medicine Office/Clini c Noteon 05-07-2023 [facility] Medicine Office/Clinic Note HPI Staff Leia is a 57 year old female presenting for acute visit Respiratory C/O: Onset: 1 week Body aches: no Chest congestion: yes Chills: no Cough: yes Sputum production: yes yellow Sore throat: Ear complaints: yes right ear itching, left ear plugged hear is bubbling Eye itching/watering: no Fever: no Headache: no Nasal congestion: yes Nasal discharge: yes yellow Poor appetite: no Reduced activity: no Sinus pain/pressure: yes left side of face is worse Sneezing: no Wheezing: yes Ill contacts: no Remedies tried: Mucinex, cold and sinus Questions/Concerns: when it first started pt had c/o chest congestion, SOB, non productive cough. Began taking Mucinex and that has improved and now is productive cough. at home covid negative pt was seen in September and labs were ordered and pt states she never went and hand them done Follow up for Mental Status: Medication adherence- Yes, takes medication as prescribed Medication refill needed: yes Suicidal thoughts-Not at this time Most recent PHQ:13 History of Present Illness pt presents today with ear pain, sinus pain, nasal congestion and cough Review of Systems PHQ Score Initial Depression Screen Score: 4 SCORE ROS - Provider Constitutional: no fever, no chills, no sweats, no fatigue Respiratory: no shortness of breath, yes cough, no orthopnea, no wheezing., nasal congestion, sinus pressure, ear pain Cardiovascular: no chest pain, no palpitations, no edema. Neurologic: no headache, no dizziness, no numbness, no weakness. Physical Exam Vitals & Measurements T: 36.2 ?C(Tympanic) HR: 72(Peripheral) RR: 16 BP: 146/94 SpO2: 98% HT: 67 in HT: 170.1 cm WT: 121.8 kg WT: 267.96 lb BMI: 42.1 General: alert, no acute distress ENMT: oral mucosa moist, no pharyngeal erythema or exudate, Left TM and canal red and moderate amount of fluid. right TM bulging with clear fluid Cardiovascular: regular rate and rhythm, normal peripheral perfusion Respiratory: Lungs CTA, respirations non labored Extremities: no deformity, no trauma Neurological: oriented x 4, LOC appropriate for age, CN II-XII intact, motor strength equal & normal bilaterally, speech normal Assessment/Plan 1. Bilateral otitis media (H66.93: Otitis media, unspecified, bilateral) Left canal and TM red with fluid, right TM bulging with clear fluid. will order augmentin Ordered: amoxicillin-clavula daniel, = 1 tab(s), Oral, q12hr, X 7 day(s), # 14 tab(s), Refills(s) 0, Pharmacy: [facility] #[id number], 170.1, cm, 05/07/23 9:12:00 EST, Height/Length Dosing, 121.8, kg, 05/07/23 9:12:00 EST, Weight Dosing fluticasone nasal, 2 spray(s), Nasal, Daily, 16 gram, Refill(s) 0, each nostril, [facility] #6177, 170.1, cm, 05/07/23 9:12:00 EST, Height/Length Dosing, 121.8, kg, 05/07/23 9:12:00 EST, Weight Dosing 2. Fluid level behind tympanic membrane of both ears (H65.93: Unspecified nonsuppurative otitis media, bilateral) kenalog given in office. flonase ordered Ordered: amoxicillin-clavula daniel, = 1 tab(s), Oral, q12hr, X 7 day(s), # 14 tab(s), Refills(s) 0, Pharmacy: [facility] #[id number], 170.1, cm, 05/07/23 9:12:00 EST, Height/Length Dosing, 121.8, kg, 05/07/23 9:12:00 EST, Weight Dosing fluticasone nasal, 2 spray(s), Nasal, Daily, 16 gram, Refill(s) 0, each nostril, [facility] #6177, 170.1, cm, 05/07/23 9:12:00 EST, Height/Length Dosing, 121.8, kg, 05/07/23 9:12:00 EST, Weight Dosing 3. Sinusitis (J32.9: Chronic sinusitis, unspecified) augmentin orderd Ordered: amoxicillin-clavula daniel, = 1 tab(s), Oral, q12hr, X 7 day(s), # 14 tab(s), Refills(s) 0, Pharmacy: [facility]/pharmacy #[id number], 170.1, cm, 05/07/23 9:12:00 EST, Height/Length Dosing, 121.8, kg, 05/07/23 9:12:00 EST, Weight Dosing fluticasone nasal, 2 spray(s), Nasal, Daily, 16 gram, Refill(s) 0, each nostril, [facility]/pharmacy #6177, 170.1, cm, 05/07/23 9:12:00 EST, Height/Length Dosing, 121.8, kg, 05/07/23 9:12:00 EST, Weight Dosing 4. BMI 40.0-44.9, adult (Z68.41: Body mass index [BMI] 40.0-44.9, adult) BMI education complete Ordered: amoxicillin-clavula daniel, = 1 tab(s), Oral, q12hr, X 7 day(s), # 14 tab(s), Refills(s) 0, [facility], 170.1, cm, 05/07/23 9:12:00 EST, Height/Length Dosing, 121.8, kg, 05/07/23 9:12:00 EST, Weight Dosing fluticasone nasal, 2 spray(s), Nasal, Daily, 16 gram, Refill(s) 0, each nostril, [facility]/pharmacy #6177, 170.1, cm, 05/07/23 9:12:00 EST, Height/Length Dosing, 121.8, kg, 05/07/23 9:12:00 EST, Weight Dosing 5. Vaping nicotine dependence, tobacco product (F17.290: Nicotine dependence, other tobacco product, uncomplicated) consider not smoking Ordered: amoxicillin-clavula daniel, = 1 tab(s), Oral, q12hr, X 7 day(s), # 14 tab(s), Refills(s) 0, Pharmacy: [facility]/pharmacy #6177, 170.1, cm, 05/07/23 9:12:00 EST, Height/Length Dosing, 121.8, kg, 05/07/23 9:12:00 EST, Weight Dosing fluticasone nasal, 2 spray(s), Nasal, Daily, 16 gram, Refill(s) 0, each nostril, [facility]/pharmacy #6177, 170.1, cm, 05/07/23 9:12: (more content not included)... Normal [facility] Comment on above: Result Comment: Elec tronically Signed By: Carmelo SANDOVAL, Lexus Suarez\.br\Date and Time Signed: 05/07/23 09:27 EST HAND RIGHT MIN 3 VIEWS Mon 0 12-15-2018 HAND RIGHT MIN 3 VIEWS M Patient Name: LEIA SULTANA Patient Patient : 1965 Examination: HAND RIGHT MIN 3 VIEWS M Date of Exam: 12/15/2018 9:12 PM Ordering Provider: GERI LUJAN MD Comparison: None Relevant Clinical Information: Pain NUMBER OF VIEWS: 3 DISCUSSION: Bones: No fracture or osseous lesion. Joints: No dislocation or joint space abnormality. Soft tissues: Unremarkable. IMPRESSION: No acute abnormality. Professional Interpretation by Radiology Electronically Signed By: Tacho Romero Sr., MD On: 12/15/2018 9:16 PM Normal [facility] Aer C AND S- Stool w/Campy A ND Shiga Toxin AGson 02-14-2018 Aer C AND S- Stool w/Campy AND Shiga Toxin AGs See Below Source: Feces Stool Procedure: Feces Culture-Campy/Shiga [p1] Collected: 02/14/2018 07:25 EDT Received: 02/14/2018 20:21 EDT FINAL REPORTS Verified Date/Time: 02/16/2018 15:43 EDT No enteric pathogens isolated by culture . NEGATIVE for SHIGA TOXIN 1 or 2 by Enzyme Immunoassay. NEGATIVE for CAMPYLOBACTER Antigen by Enzyme Immunoassay. Fecal specimens are routinely cultured for the most common enteric pathogens: Salmonella and Shigella Also included are the less common miscellaneous enteric pathogens: Aeromonas, Plesiomonas, Edwardsiella, Vibrio, and Yersinia. Two specimens are usually sufficient for feces culture, since they yield 99% of the pathogens. Performing Locations p1: This test was performed at: [facility], CLIA #[id number], [address] [place], [address] , [facility], [facility] Comment on above: Order Comment: Testi ng performed at [facility], [address] [place] [address] Host Order: [id number] Aer C AND S- Urineon 018 Aer C AND S- Urine See Below Source: U CleanCatch Clean Catch - Media plated on 02/14/2018 at 07:54 by SALOMÓN. Procedure: Urine Culture [p1] Collected: 02/14/2018 07:20 EDT Received: 02/14/2018 18:33 EDT FINAL REPORTS Verified Date/Time: 02/16/2018 08:20 EDT 25-50,000 CFU/ML ESCHERICHIA COLI See Note 50-75,000 CFU/ML LACTOBACILLUS SPECIES IVONNE(s) not indicated , normal urogenital joey . NOTE: Antibiotics with the lowest numeric IVONNE are not necessarily the antibiotic of choice. Antibiotic concentration at the infection site, dosing administration, renal function, and potential toxicity including suppression of normal GI joey must be considered. SUSCEPTIBILITY RESULTS ESCHERICHIA COLI Antibiotic IVONNE Dilutn IVONNE Interp Ampicillin >=32 R Ampicillin/Sulbacta m >=32 R Cefazolin <=4 S Ciprofloxacin <=0.25 S Gentamicin <=1 S Levofloxacin <=0.12 S Nitrofurantoin <=16 S Piperacillin/ <=4 S Tazobactam Tobramycin <=1 S Trimethoprim/Sulfa <=20 S Performing Locations p1: This test was performed at: [facility], CLIA #[id number], [address] [place], [address] , [facility], [facility] Comment on above: Order Comment: Carolyn nascimento Order: [id number] CBC w/Auto Diffon 02-14-2018 Basophils (Bld) [#/Vol] 0.06 10*3/uL Normal 0.00-0.10 [facility] Comment on above: Order Comment: Immature Gran parameters reflect the combination of Metas, Myelos, and Promyelocytes and should be used in conjunction with other current indicators for the diagnosis of infection/inflammation. Bands are not included in the Immature Gran parameters. They are included with the Neutrophil parameters. Nucleated RBCs are counted separately from the WBCs. Corrected WBC is no longer indicated. [place] [address] Host Order: [id number] Basophils/100 WBC (Bld) 0.7 % Normal 0.1-1.2 [facility] Comment on above: Order Comment: Immature Gran parameters reflect the combination of Metas, Myelos, and Promyelocytes and should be used in conjunction with other current indicators for the diagnosis of infection/inflammation. Bands are not included in the Immature Gran parameters. They are included with the Neutrophil parameters. Nucleated RBCs are counted separately from the WBCs. Corrected WBC is no longer indicated. Testing performed at [facility], [address] [place] [address] Host Order: [id number] Eosinophils (Bld) [#/Vol] 0.22 10*3/uL Normal 0.00-0.40 [facility] Comment on above: Order Comment: Immature Gran parameters reflect the combination of Metas, Myelos, and Promyelocytes and should be used in conjunction with other current indicators for the diagnosis of infection/inflammation. Bands are not included in the Immature Gran parameters. They are included with the Neutrophil parameters. Nucleated RBCs are counted separately from the WBCs. Corrected WBC is no longer indicated. [place] [address] Host Order: [id number] Eosinophils/100 WBC (Bld) 2.4 % Normal 0.7-5.8 [facility] Comment on above: Order Comment: Immature Gran parameters reflect the combination of Metas, Myelos, and Promyelocytes and should be used in conjunction with other current indicators for the diagnosis of infection/inflammation. Bands are not included in the Immature Gran parameters. They are included with the Neutrophil parameters. Nucleated RBCs are counted separately from the WBCs. Corrected WBC is no longer indicated. Testing performed at [facility], [address] [place] [address] Host Order: [id number] Erythrocyte distribution width (RBC) [Ratio] 14.1 % Normal 11.7-14.4 [facility] Comment on above: Order Comment: Immature Gran parameters reflect the combination of Metas, Myelos, and Promyelocytes and should be used in conjunction with other current indicators for the diagnosis of infection/inflammation. Bands are not included in the Immature Gran parameters. They are included with the Neutrophil parameters. Nucleated RBCs are counted separately from the WBCs. Corrected WBC is no longer indicated. Testing performed at [facility], [address] [place] [address] Host Order: [id number] Hematocrit (Bld) [Volume fraction] 39.7 % Normal 34.1-44.9 [facility] Comment on above: Order Comment: Immature Gran parameters reflect the combination of Metas, Myelos, and Promyelocytes and should be used in conjunction with other current indicators for the diagnosis of infection/inflammation. Bands are not included in the Immature Gran parameters. They are included with the Neutrophil parameters. Nucleated RBCs are counted separately from the WBCs. Corrected WBC is no longer indicated. Testing performed at [facility], [address] [place], [place] [id number] Host Order: [id number] Hemoglobin (Bld) [Mass/Vol] 13.1 g/dL Normal 11.2-15.7 [facility] Comment on above: Order Comment: Immature Gran parameters reflect the combination of Metas, Myelos, and Promyelocytes and should be used in conjunction with other current indicators for the diagnosis of infection/inflammation. Bands are not included in the Immature Gran parameters. They are included with the Neutrophil parameters. Nucleated RBCs are counted separately from the WBCs. Corrected WBC is no longer indicated. Testing performed at [facility], [address] [place] [id number] Host Order: [id number] Immature Gran % 0.3 % Normal 0.0-0.4 [facility] Comment on above: Order Comment: Immature Gran parameters reflect the combination of Metas, Myelos, and Promyelocytes and should be used in conjunction with other current indicators for the diagnosis of infection/inflammation. Bands are not included in the Immature Gran parameters. They are included with the Neutrophil parameters. Nucleated RBCs are counted separately from the WBCs. Corrected WBC is no longer indicated. Testing performed at [facility], [address] [place] [address] Host Order: [id number] Immature Gran Count 0.03 10*3/uL High 0.00-0.00 [facility] Comment on above: Order Comment: Immature Gran parameters reflect the combination of Metas, Myelos, and Promyelocytes and should be used in conjunction with other current indicators for the diagnosis of infection/inflammation. Bands are not included in the Immature Gran parameters. They are included with the Neutrophil parameters. Nucleated RBCs are counted separately from the WBCs. Corrected WBC is no longer indicated. Testing performed at [facility], [address] [place] [address] Host Order: [id number] Lymphocytes (Bld) [#/Vol] 1.41 10*3/uL Normal 1.20-3.70 [facility] Comment on above: Order Comment: Immature Gran parameters reflect the combination of Metas, Myelos, and Promyelocytes and should be used in conjunction with other current indicators for the diagnosis of infection/inflammation. Bands are not included in the Immature Gran parameters. They are included with the Neutrophil parameters. Nucleated RBCs are counted separately from the WBCs. Corrected WBC is no longer indicated. Testing performed at [facility], [address] [place] [address] Host Order: [id number] Lymphocytes/100 WBC (Bld) 15.6 % Low 19.3-51.7 [facility] Comment on above: Order Comment: Immature Gran parameters reflect the combination of Metas, Myelos, and Promyelocytes and should be used in conjunction with other current indicators for the diagnosis of infection/inflammation. Bands are not included in the Immature Gran parameters. They are included with the Neutrophil parameters. Nucleated RBCs are counted separately from the WBCs. Corrected WBC is no longer indicated. Testing performed at [facility], [address] [place] [address] Host Order: [id number] MCH (RBC) [Entitic mass] 28.5 pg Normal 25.6-32.2 [facility] Comment on above: Order Comment: Immature Gran parameters reflect the combination of Metas, Myelos, and Promyelocytes and should be used in conjunction with other current indicators for the diagnosis of infection/inflammation. Bands are not included in the Immature Gran parameters. They are included with the Neutrophil parameters. Nucleated RBCs are counted separately from the WBCs. Corrected WBC is no longer indicated. Testing performed at [facility], [address] [place] [address] Host Order: [id number] MCHC (RBC) [Mass/Vol] 33.0 g/dL Normal 32.2-35.5 [facility] Comment on above: Order Comment: Immature Gran parameters reflect the combination of Metas, Myelos, and Promyelocytes and should be used in conjunction with other current indicators for the diagnosis of infection/inflammation. Bands are not included in the Immature Gran parameters. They are included with the Neutrophil parameters. Nucleated RBCs are counted separately from the WBCs. Corrected WBC is no longer indicated. Testing performed at [facility], [address] [place] [address] Host Order: [id number] MCV (RBC) [Entitic vol] 86.5 fL Normal 79.4-94.8 [facility] Comment on above: Order Comment: Immature Gran parameters reflect the combination of Metas, Myelos, and Promyelocytes and should be used in conjunction with other current indicators for the diagnosis of infection/inflammation. Bands are not included in the Immature Gran parameters. They are included with the Neutrophil parameters. Nucleated RBCs are counted separately from the WBCs. Corrected WBC is no longer indicated. Testing performed at [facility], [address] [place] [address] Host Order: [id number] Monocytes (Bld) [#/Vol] 0.68 10*3/uL Normal 0.20-0.90 [facility] Comment on above: Order Comment: Immature Gran parameters reflect the combination of Metas, Myelos, and Promyelocytes and should be used in conjunction with other current indicators for the diagnosis of infection/inflammation. Bands are not included in the Immature Gran parameters. They are included with the Neutrophil parameters. Nucleated RBCs are counted separately from the WBCs. Corrected WBC is no longer indicated. Testing performed at [facility], [address] [place] [address] Host Order: [id number] Monocytes/100 WBC (Bld) 7.5 % Normal 4.7-12.5 [facility] Comment on above: Order Comment: Immature Gran parameters reflect the combination of Metas, Myelos, and Promyelocytes and should be used in conjunction with other current indicators for the diagnosis of infection/inflammation. Bands are not included in the Immature Gran parameters. They are included with the Neutrophil parameters. Nucleated RBCs are counted separately from the WBCs. Corrected WBC is no longer indicated. Testing performed at [facility], [address] [place] [address] Host Order: [id number] Neutrophils (Bld) [#/Vol] 6.65 10*3/uL High 1.60-6.10 [facility] Comment on above: Order Comment: Immature Gran parameters reflect the combination of Metas, Myelos, and Promyelocytes and should be used in conjunction with other current indicators for the diagnosis of infection/inflammation. Bands are not included in the Immature Gran parameters. They are included with the Neutrophil parameters. Nucleated RBCs are counted separately from the WBCs. Corrected WBC is no longer indicated. Testing performed at [facility], [address] [place] [address] Host Order: [id number] Neutrophils/100 WBC (Bld) 73.5 % High 34.0-71.1 [facility] Comment on above: Order Comment: Immature Gran parameters reflect the combination of Metas, Myelos, and Promyelocytes and should be used in conjunction with other current indicators for the diagnosis of infection/inflammation. Bands are not included in the Immature Gran parameters. They are included with the Neutrophil parameters. Nucleated RBCs are counted separately from the WBCs. Corrected WBC is no longer indicated. Testing performed at [facility], [address] [place], [place] [id number] Host Order: [id number] Nucleated RBC (Bld) [#/Vol] 0.00 10*3/uL Normal 0.00-0.00 [facility] Comment on above: Order Comment: Immature Gran parameters reflect the combination of Metas, Myelos, and Promyelocytes and should be used in conjunction with other current indicators for the diagnosis of infection/inflammation. Bands are not included in the Immature Gran parameters. They are included with the Neutrophil parameters. Nucleated RBCs are counted separately from the WBCs. Corrected WBC is no longer indicated. Testing performed at [facility], [address] [place] [address] Host Order: [id number] Nucleated RBC/100 WBC (Bld) [Ratio] 0.0 /100{WBC} Normal 0.0-0.2 [facility] Comment on above: Order Comment: Immature Gran parameters reflect the combination of Metas, Myelos, and Promyelocytes and should be used in conjunction with other current indicators for the diagnosis of infection/inflammation. Bands are not included in the Immature Gran parameters. They are included with the Neutrophil parameters. Nucleated RBCs are counted separately from the WBCs. Corrected WBC is no longer indicated. Testing performed at [facility], [address] [place] [address] Host Order: [id number] Platelet mean volume (Bld) [Entitic vol] 10.7 fL Normal 9.4-12.3 [facility] Comment on above: Order Comment: Immature Gran parameters reflect the combination of Metas, Myelos, and Promyelocytes and should be used in conjunction with other current indicators for the diagnosis of infection/inflammation. Bands are not included in the Immature Gran parameters. They are included with the Neutrophil parameters. Nucleated RBCs are counted separately from the WBCs. Corrected WBC is no longer indicated. Testing performed at [facility], [address] [place] [address] Host Order: [id number] Platelets (Bld) [#/Vol] 217 10*3/uL Normal 182-369 [facility] Comment on above: Order Comment: Immature Gran parameters reflect the combination of Metas, Myelos, and Promyelocytes and should be used in conjunction with other current indicators for the diagnosis of infection/inflammation. Bands are not included in the Immature Gran parameters. They are included with the Neutrophil parameters. Nucleated RBCs are counted separately from the WBCs. Corrected WBC is no longer indicated. Testing performed at [facility], [address] [place] [address] Host Order: [id number] RBC (Bld) [#/Vol] 4.59 10*6/uL Normal 3.93-5.22 [facility] Comment on above: Order Comment: Immature Gran parameters reflect the combination of Metas, Myelos, and Promyelocytes and should be used in conjunction with other current indicators for the diagnosis of infection/inflammation. Bands are not included in the Immature Gran parameters. They are included with the Neutrophil parameters. Nucleated RBCs are counted separately from the WBCs. Corrected WBC is no longer indicated. Testing performed at [facility], [address] [place], [place] [address] Host Order: [id number] RDW-SD 44.7 fL Normal 36.4-46.3 [facility] Comment on above: Order Comment: Immature Gran parameters reflect the combination of Metas, Myelos, and Promyelocytes and should be used in conjunction with other current indicators for the diagnosis of infection/inflammation. Bands are not included in the Immature Gran parameters. They are included with the Neutrophil parameters. Nucleated RBCs are counted separately from the WBCs. Corrected WBC is no longer indicated. Testing performed at [facility], [address] [place] [address] Host Order: [id number] WBC (Bld) [#/Vol] 9.1 10*3/uL Normal 4.0-10.0 [facility] Comment on above: Order Comment: Immature Gran parameters reflect the combination of Metas, Myelos, and Promyelocytes and should be used in conjunction with other current indicators for the diagnosis of infection/inflammation. Bands are not included in the Immature Gran parameters. They are included with the Neutrophil parameters. Nucleated RBCs are counted separately from the WBCs. Corrected WBC is no longer indicated. Testing performed at [facility], [address] [place] [id number] Host Order: [id number] [address] ABDOMEN PELVIS WITH IV CO NTRASTon 02-14-2018 CT ABDOMEN PELVIS WITH IV CONTRAST Patient Name: LEIA SULTANA Patient Patient : 1965 Examination: CT ABDOMEN PELVIS WITH IV CONTRAST Date of Exam: 02/14/2018 7:11 AM Ordering Provider: JOANA ZUNIGA MD Diagnosis/Reason for Exam: Dysentery; Lower abdominal pain Relevant Clinical Information: Dysentery; Lower abdominal pain Comparison: 12/07/2017 CONTRAST: IV contrast was administered. 85 cc Omnipaque 350 TECHNIQUE: Imaging was performed.This exam was performed using one or more of the following dose reduction techniques: Automated exposure control (AEC), adjustment of mA/kV according to patient size, and use of iterative reconstruction technique. DISCUSSION: Inferior Thorax: 5 mm right middle lobe pulmonary nodule 2:4. Upper G.I.: Unremarkable. Spleen: Unremarkable. Pancreas: Unremarkable. Gallbladder/Biliary : Unremarkable. Liver: Unremarkable. Adrenal glands: Left adrenal gland mass 3.3 cm that does not meet criteria for an adrenal adenoma. In the absence of a known primary malignancy or laboratory data indicating pheochromocytoma, the finding is statistically likely benign. MR could further delineate if clinically warranted. This is stable compared to the prior examination. Kidneys/ureters: Unremarkable. Lower G.I.: Wall thickening of colitis distal transverse and proximal descending colon centered on the splenic flexure. No obstruction. No abscess. Appendix: Normal size. Bladder: Unremarkable. Uterus and Adnexa: Fallopian tube occlusion devices present bilaterally. Likely small bilateral ovarian cysts. Small amount of pelvic fluid. Peritoneum / retroperitoneum: No pneumoperitoneum. Vessels: Unremarkable. Lymph nodes: No adenopathy. Abdominal and pelvic wall / soft tissue: Unremarkable. Bones: Mild right hip osteoarthritis. Moderate left hip osteoarthritis. Severe facet osteoarthritis. Moderate lumbar degenerative disc disease. The thoracic spine demonstrates moderate degenerative changes at multiple levels. IMPRESSION: 1. Colitis centered on the splenic flexure. No abscess or obstruction. 2. 5 mm right middle lobe pulmonary nodule. Follow-up recommendations below. 3. Stable left adrenal mass. 4. Likely subcentimeter bilateral ovarian cysts. Small amount of pelvic fluid. Fleischner Society Lung Nodule Recommendations: Solid Nodules: Low Risk Patients: Single nodule <6mm: No routine followup. Multiple nodules <6mm: No routine followup. High Risk Patients (Significant smoking and/or other risk factors.): Single nodule <6mm: Optional CT at 12mo. Multiple nodules <6mm: Optional CT at 12mo. Note: Guidelines for followup of solid solitary or multiple nodules detected incidentally at CT in persons at or greater than 35 years old. If multiple nodules present, size of largest nodule determines followup. *Fleischner Society 2017 Guidelines; Radiology, 2017. Professional Interpretation by Radiology Electronically Signed By: Du Parks MD On: 02/14/2018 7:34 AM [facility] Comp Metabolic Profileon Albumin [Mass/Vol] 3.9 g/dL Normal 3.5-5.0 [facility] Comment on above: Order Comment: Testi ng performed at [facility], [address] [place], [place] [id number] Host Order: [id number] ALP [Catalytic activity/Vol] 64 U/L Normal 38-126 [facility] Comment on above: Order Comment: Testi ng performed at [facility], [address] [place], [place] [address] Host Order: [id number] ALT [Catalytic activity/Vol] 38 U/L Normal 13-69 [facility] Comment on above: Order Comment: Testi ng performed at [facility], [address] [place], [place] [address] Host Order: [id number] Anion gap [Moles/Vol] 10 mmol/L Low 12-20 [facility] Comment on above: Order Comment: Testi ng performed at [facility], [address] [place] [address] Host Order: [id number] AST [Catalytic activity/Vol] 23 U/L Normal 15-46 [facility] Comment on above: Order Comment: Testi ng performed at [facility], [address] [place] [address] Host Order: [id number] Bilirubin [Mass/Vol] 0.5 mg/dL Normal 0.2-1.3 [facility] Comment on above: Order Comment: Testi ng performed at [facility], [address] [place], [place] [address] Host Order: [id number] Calcium [Mass/Vol] 8.7 mg/dL Normal 8.4-10.2 [facility] Comment on above: Order Comment: Testi ng performed at [facility], [address] [place], [place] [address] Host Order: [id number] Chloride [Moles/Vol] 104 mmol/L Normal 98-107 [facility] Comment on above: Order Comment: Testi ng performed at [facility], [address] [place], [place] [address] Host Order: [id number] Creatinine [Mass/Vol] 0.9 mg/dL Normal 0.6-1.2 [facility] Comment on above: Order Comment: Testi ng performed at [facility], [address] [place] [address] Host Order: [id number] Glucose [Mass/Vol] 107 mg/dL High 74-106 [facility] Comment on above: Order Comment: Testi ng performed at [facility], [address] [place] [address] Host Order: [id number] Potassium [Moles/Vol] 3.8 mmol/L Normal 3.3-4.9 [facility] Comment on above: Order Comment: Testi ng performed at [facility], [address] [place] [address] Host Order: [id number] Protein [Mass/Vol] 7.0 g/dL Normal 6.3-8.2 [facility] Comment on above: Order Comment: Testi ng performed at [facility], [address] [place] [address] Host Order: [id number] Sodium [Moles/Vol] 140 mmol/L Normal 137-145 [facility] Comment on above: Order Comment: Testi ng performed at [facility], [address] [place] [address] Host Order: [id number] Total CO2 30.0 mEq/L Normal 22.0-30.0 [facility] Comment on above: Order Comment: Testi ng performed at [facility], [address] [place] [address] Host Order: [id number] Urea nitrogen [Mass/Vol] 10 mg/dL Normal 8-19 [facility] Comment on above: Order Comment: Testi ng performed at [facility], [address] [place] [address] Host Order: [id number] EST Glomerular Filtration Ra john 02-14-2018 GFR/1.73 sq M predicted among non-blacks MDRD (S/P/Bld) [Vol rate/Area] mL/min/{1.73_m2} Normal >60 [facility] Comment on above: Order Comment: Carolyn nascimento Order: [id number] The calculated GFR uses the (IDMS)-traceable creatinine MDRD equation and is reported in mL/min/1.73 square meters. This formula is not recommended for use with individuals with unstable creatinine concentrations, extremes in muscle mass and/or body size, or alternative diets and may not be suitable for all patient populations. Testing performed at [facility], [address] [place] [address] Result Comment: The reported eGFR is based on a non- patient, for Americans multiply the result by 1.212. Fecal Occult Bloodon 018 Fecal Occult Blood Positive Abnormal Negative [facility] Comment on above: Order Comment: Testi ng performed at [facility], [address] [place] [address] Host Order: [id number] Result Comment: The Fecal Immunological Test (FIT) is a qualitative immunoassay screening test for the detection of human hemoglobin in feces. Patients collect one stool sample for screening verses three samples typical of guaiac-based methods. FIT testing detects human hemoglobin eliminating the need for dietary restrictions prior to sample collection. Lactoferrin Stoolon 02-15-20 18 Lactoferrin Positive Abnormal Negative [facility] Comment on above: Order Comment: [id number], [address] [place], [address], Host Order: [id number] Result Comment: Feca l samples from breast fed infants should not be used with this assay. Lipaseon 02-14-2018 Lipase [Catalytic activity/Vol] 52 U/L Normal 23-300 [facility] Comment on above: Order Comment: Testi ng performed at [facility], [address] [place], [place] [address] Host Order: [id number] Ova AND Parasites Routineon 02-14-2018 Cryp EIA Negative Normal Negative [facility] Comment on above: Order Comment: Testi ng performed at [facility], [address] [place] [address] Host Order: [id number] Result Comment: The sensitivity for Cryptosporidium antigen testing by EIA is 88-100%. Consider non-parasitic causes before ordering Ova and Parasites, Specified by microscopy for three separate specimens. When results are negative for Giardia/ Cryptosporidium antigens, the prevalence rate of detecting other pathogenic parasites is 0.4% in a SBMF study with 17,007 specimens. Giar EIA Negative Normal Negative [facility] Comment on above: Order Comment: Testi ng performed at [facility], [address] [place] [address] Host Order: [id number] Result Comment: The sensitivity for Giardia antigen testing by EIA is 88-100%. Consider non-parasitic causes before ordering Ova and Parasites, Specified by microscopy for three separate specimens. When results are negative for Giardia/ Cryptosporidium antigens, the prevalence rate of detecting other pathogenic parasites is 0.4% in a SBMF study with 17,007 specimens. SRC OVAPAR Feces Normal [facility] Comment on above: Order Comment: Testi ng performed at [facility], [address] [place] [address] Host Order: [id number] Rejected Specimenon 02-15-20 18 Collection Date 02/14/2018 [facility] Comment on above: Order Comment: Carolyn nascimento Order: [id number] Collection Time 0545 Normal [facility] Comment on above: Order Comment: Carolyn nascimento Order: [id number] Rejection Reason IV Start Hemolyzed [facility] Comment on above: Order Comment: Carolyn nascimento Order: [id number] Result Comment: IV S tart specimen has been rejected. A new sample will be collected. Urinalysis w/rfx Cultureon 0 02-14-2018 Appearance (U) Slightly Cloudy [facility]normal [facility]: Order Comment: Testi ng performed at [facility], [address] [place] [address] Host Order: [id number] Bilirubin, Urine Negative Normal Negative [facility] Comment on above: Order Comment: Testi ng performed at [facility], [address] [place] [address] Host Order: [id number] Color (U) Yellow Normal [facility] Comment on above: Order Comment: Testi ng performed at [facility], [address] [place] [address] Host Order: [id number] Glucose Ql (U) Negative Normal Negative [facility] Comment on above: Order Comment: Testi ng performed at [facility], [address] [place] [address] Host Order: [id number] Hemoglobin, Urine 2+ Abnormal Negative [facility] Comment on above: Order Comment: Testi ng performed at [facility], [address] [place] [address] Host Order: [id number] Ketone, Urine Negative Normal Negative [facility] Comment on above: Order Comment: Testi ng performed at [facility], [address] [place] [address] Host Order: [id number] Leukocytes, Urine Trace Abnormal Negative [facility] Comment on above: Order Comment: Testi ng performed at [facility], [address] [place] [address] Host Order: [id number] Nitrite, Urine Negative Normal Negative [facility] Comment on above: Order Comment: Testi ng performed at [facility], [address] [place] [address] Host Order: [id number] pH (U) 5.0 [pH] Normal 5.0-8.0 [facility] Comment on above: Order Comment: Testi ng performed at [facility], [address] [place] [address] Host Order: [id number] Protein (U) [Mass/Vol] Negative Normal Negative [facility] Comment on above: Order Comment: Testi ng performed at [facility], [address] [place] [address] Host Order: [id number] Specific [place], Urine <=1.005 Abnormal 1.005-1.030 [facility] Comment on above: Order Comment: Testi ng performed at [facility], [address] [place] [address] Host Order: [id number] Specimen Type, Urine Clean Catch Normal [facility] Comment on above: Order Comment: Testi ng performed at [facility], [address] [place] [address] Host Order: [id number] Urobilinogen, Urine 0.2 {EhrlichU}/dL Normal 0.2-1.0 [facility] Comment on above: Order Comment: Testi ng performed at [facility], [address] [place] [address] Host Order: [id number] Urine Microscopic w/rfx Cult ureon 02-14-2018 Bacteria LM.HPF (Urine sed) [#/Area] Trace Normal None Seen-Trace [facility] Comment on above: Order Comment: Testi ng performed at [facility], [address] [place] [address] [place] Order: [id number] Epithelial cells, Urine 6-10 Abnormal 0-5 [facility] Comment on above: Order Comment: Testi ng performed at [facility], [address] [place] [address] [place] Order: [id number] RBC (U) [#/Vol] 3-5 Abnormal 0-2 [facility] Comment on above: Order Comment: Testi ng performed at [facility], [address] [place] [address] [place] Order: [id number] WBC's, Urine 11-20 Abnormal 0-5 [facility] Comment on above: Order Comment: Testi ng performed at [facility], [address] [place] [address] [place] Order: [id number] Vital Signs Date Time Vital Sign Value Performing Clinician Facility 08-11-2022 10:15-0400 Body height 170.18 cm Tereza Lombardo Other [facility] Other 08-11-2022 10:15-0400 Body mass index (BMI) [Ratio] 40.56 kg/m2 Tereza Lombardo Other [facility] Other 08-11-2022 10:15-0400 Body temperature 98.1 [degF] Tereza Lombardo Other [employer] Other 08-11-2022 10:15-0400 Body weight 117.48 kg Tereza Lombardo Other [employer] Other 08-11-2022 10:15-0400 Diastolic blood pressure 82 mm[Hg] Tereza Lombardo Other [employer] Other 08-11-2022 10:15-0400 Respiratory rate 18 /min Tereza Lombardo Other [employer] Other 08-11-2022 10:15-0400 SaO2% (BldA) [Mass fraction] 96 % Tereza Lombardo Other [employer] Other 08-11-2022 10:15-0400 Systolic blood pressure 137 mm[Hg] Tereza Lombardo Other [employer] Other Encounters Encounter Date Encounter Type Care Provider Facility Start: 02-09-2024 ambulatory Lexus L Carmelo Facility: [facility] Start: 11-10-2023 End: 11-10-2023 ambulatory Lexus L Carmelo Facility: [facility] Start: 10-19-2023 End: 10-19-2023 Lab Drop off Lexus L Carmelo [facility] Start: 10-19-2023 End: 10-19-2023 ambulatory Lexus L Carmelo Facility:[facility] Start: 05-18-2023 End: 05-18-2023 ambulatory Lexus L Carmelo Facility: [facility] Start: 05-07-2023 End: 05-07-2023 ambulatory Lexus L Carmelo Facility: [facility] Start: 08-11-2022 End: 08-11-2022 ambulatory Tereza Lombardo Other [employer] Other Start: 08-11-2022 Office outpatient ne w 30 minutes Tereza Lombardo [facility] Start: 04-12-2020 End: 04-12-2020 Telemedicine consultation with patient Kojo Augustin Work Phone: [facility] Work Phone: Procedures Date Procedure Procedure Detail Performing Clinician Destructive procedure Lexus shipley Comment on above: for vaginal bleeding Plan of Treatment Date Care Activity Detail Author Start: 04-19-2020 SARS-CoV-2, [facility] Work Phone: Start: 04-12-[address] up Testing [facility] Work Phone: Immunizations Immunization Date Immunization Notes Care Provider Fa cility NEGATED: Highlighted row has not occurred!10-03-2022 SARS-CoV-2 mRNA (tozinameran 5y-11y) vaccine Lexus Rhodes [facility] [place] Payers Date Payer Category Payer Unknown [id number] 1965 Unknown [id number] 2.16.8 [id number] 1965 Unknown [id number] 2.16.8 [id number] 1965 Unknown [id number] 2.16.8 [id number] 1965 Unknown [id number] 2.16.8 [id number] 1965 Unknown [id number] 2.16.8 [id number] 1965 Unknown [id number] 2.16.8 [id number] Unknown 1 - [employer] [id number] Social History Date Type Detail Facility Tobacco smoking status Unknown if ever sm oked [facility] Work Phone: Sex Assigned At [facility] Start: 10-19-2023 Tobacco smoking status Never s moked tobacco (finding) [facility] Tobacco smoking status Never [facility] Mental Status Date Assessment Result Facility Cognitive function No anxiety Anxiety (fi nding) [facility] Work Phone: Evaluation note 08-11-2022 Note Date & Type Note Facility 08-11-2022 Evaluation note Encounter Date Diagnosis Assessment Notes Jul, Viral URI (ICD-10 - J06.9) Symptoms appear viral today. Bacteria infections take several days to weeks of symptoms to develop. Use saline nasal spray before prescription one and you have better results. Recommend OTC medications such as Mucinex DM, Delsym, Cepocal Lozenges Continue tylenol/ibuprof en for general discomfort. Encourage fluids. Symptoms should improve within the next 10-14 days. If no improvement of symptoms in 14 days call primary care provider to discuss antibiotic therapy Jul, Bronchitis (ICD-10 - J40) Salt water gargles may help with discomfort. Take medications as directed. Cool mist humidifier, steaming up bathroom with shower may help with symptom relief. Follow up with primary care provider if no improvement of symptoms [employer] Other Evaluation + Plan note Note Date & Type Note Facility Evaluation + Plan note Future Appointments Appointment Date:11/09/2023 10:00:00 AM Scheduled Provider:Lexus Estes Location:[facility] Appointment Type:[facility] History general Narrative - Reported Note Date & Type Note Facility History general Narrative - Reported Type Medical History Depression Medical History Seasonal allergic rhinitis Medical History GERD (gastroesophageal reflux di sease) Surgical History uterine ablasion statusboom [facility] Other Hospital course Narrative Note Date & Type Note Facility Hospital course Narrative No data available for this section [facility] Hospital Discharge instructions Note Date & Type Note Facility Hospital Discharge instructions No data available for this section [facility] Progress note Note Date & Type Note Facility Progress note No data available for this section [facility] Summary Purpose Family History No Family History Records FoundNo Family History Records Found Includes: Family History in patient's chart No Family History Recorded No data available for this section No Family History Records FoundNo Family History Records FoundNo Family History Records FoundNo Family History Records FoundNo Family History Records FoundNo Family History Records Found Advance Directives No Advanced Directives Records FoundNo Advanced Directives Records Found Includes: Current Advance Directives No Advance Directives RecordedNo Advanced Directives Records FoundNo Advanced Directives Records FoundNo Advanced Directives Records FoundNo Advanced Directives Records FoundNo Advanced Directives Records FoundNo Advanced Directiv es Records Found Reason for Referral No Reason for Referral RecordedNo Information No data available for this section Assessments Findings Encounter Date Exposure to a viral disease Telemedicine New Patient with Kojo Augustin [employer] 04/12/2020 Instructions Instructions not supported for this document type No Instructions Recorded History of Present Illness History of Present Illness not supported for this document type No History of Present Illness Recorded Review of System Review of Systems not supported for this document type No Review of Systems Recorded Physical Exam Physical Exam not supported for this document type No Physical Exam Recorded Additional Source Comments INFORMATION SOURCE (unrecogn ized section and content) DATE CREATED AUTHOR 12/16/2018 [facility] DATE CREATED AUTHOR AUTHOR'S ORGANIZ ATION 01/01/2019 [facility] DATE CREATED AUTHOR AUTHOR'S ORGANIZ ATION 10/21/2023 [facility] DATE CREATED AUTHOR AUTHOR'S ORGANIZ ATION 10/22/2023 [facility] DATE CREATED AUTHOR AUTHOR'S ORGANIZ ATION 11/11/2023 [facility] DATE CREATED AUTHOR AUTHOR'S ORGANIZ ATION 11/13/2023 [facility] Medical History (unrecognize d section and content) Includes: Medical History in patient's chartNo Medical History Recorded Evaluations & Outcomes (unre cognized section and content) Includes: Evaluations & Outcomes for active GoalsNo Outcomes Recorded REASON FOR VISIT (unrecogniz ed section and content) FEVER, RUNNY NOSE, COUGH, IT REMY EARS, CONGESTION Patient Care team informatio n (unrecognized section and content) Personnel Name: Lexus Estes Address: Address: [address] [place] [id number] FOR RECORDS PERTAINING TO PATIENTS WHO ARE OR HAVE BEEN ENROLLED IN A CHEMICAL DEPENDENCY/SUBSTANCEABUSE PROGRAM, SOME INFORMATION MAY BE OMITTED. This clinical summary was aggregated from multiple sources. Caution should be exercised in using it in the provision of clinical care. This summary normalizes information from multiple sources, and as a consequence, information in this document may materially change the coding, format and clinical context of patient data. In addition, data may be omitted in some cases. CLINICAL DECISIONS SHOULD BE BASED ON THE PRIMARY CLINICAL RECORDS. [facility] [employer] [facility] provides no warranty or guarantee of the accuracy or completeness of information in this document.
== END 2024-01-20 20:38 | disposition home or self-care (01) ==
LOC: SLEEP 20:37
PROVIDERS: PCP Nurse Practitioner; Visit Provider Nurse Practitioner
DX: G47.33 Obstructive sleep apnea (adult) (pediatric) (principal)
CPT/HCPCS: 95811